=== PATIENT | male | born 1985 | race Caucasian/White ===

== ENCOUNTER 2018-10-14 07:52 | Emergency (ER) | payer BC ==
[2018-10-14 08:08] VITALS: BP 128/80
--- NOTE | 2018-10-14 08:23 | UC ---
Back Pain HPI - HPI Summary HPI Summary: Patient presents to urgent care reporting that for the last 2 years she's had intermittent kidney pain. 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 Patient states the pain gets better the day goes on. Patient has any nausea vomiting. Patient has not taken anything for the pain. Patient has not applied heat. Patient states he saw approximately 2 years ago for the symptoms. Patient had urine and blood work are both normal. Patient not been back since. Patient states he is not currently have a doctor. Patient also reports he has foam in his urine. Patient states she'salso the last couple years. Patient states in the morning his urine is dark gets better the day goes on. Patient denies nausea or vomiting. Patient states currently he has 0 pain. Patient states he slipped at home and at bed last night. Patient does not take anything for the pain. Patient does take Nexium for stomach acid. Patient's medications reviewed this visit. Patient has any penile discharge, lesions, concern for sexual transmitted disease. - History of Current Complaint Chief Complaint: UCGU Stated Complaint: KIDNEY PAIN Time Seen by Provider: 10/14/18 08:21 Hx Obtained From: Patient Onset/Duration: Gradual Onset Timing: Intermittent, Lasting Hours Severity Initially: Moderate Severity Currently: None Pain Intensity: 0 Pain Scale Used: 0-10 Numeric Back Pain: Is Diffuse Character: Sharp, Spasmodic, Stiffness Aggravating Factor(s): Movement, Walking - Allergies/Home Medications Allergies/Adverse Reactions: Allergies Allergy/AdvReac Type Severity Reaction Status Date / Time No Known Allergies Allergy Verified 10/14/18 08:00 Home Medications: Home Medications NK [No Home Medications Reported] 10/14/18 [History Confirmed 10/14/18] PMH/Surg Hx/FS Hx/Imm Hx Previously Healthy: Yes - Surgical History Surgical History: None - Family History Known Family History: Positive: Non-Contributory - Social History Occupation: Employed Full-time Lives: With Family Alcohol Use: Occasionally Substance Use Type: None Smoking Status (MU): Never Smoked Tobacco Review of Systems All Other Systems Reviewed And Are Negative: Yes Constitutional: Positive: Negative Skin: Positive: Negative Eyes: Positive: Negative ENT: Positive: Negative Genitourinary: Positive: Other - foam in urine Motor: Positive: Negative Musculoskeletal: Positive: Other: - back pain Neurological: Positive: Negative Psychological: Positive: Negative Is Patient Immunocompromised?: No Physical Exam - Summary Physical Exam Summary: Vital Signs Reviewed: Yes A+Ox3, no distress Eyes: Conjunctiva Clear, KING. EOM intact and full ENT: Hearing grossly normal TM x 2 clear, mmoist, uvula midline, no exudate, no erythema Neck: Positive: Supple Respiratory: Positive: No respiratory distress, No accessory muscle use + CTA throughout no w/r Cardiovascular: RRR nl s1, s2 no m/r CBT <2 sec abd soft + BS nt/nd no guarding, no distension, no CVA Musculoskeletal Exam: FRANCOIS x 4 without difficulty Strength Intact, ROM Intact No pain c/t/l/s Neurological: Positive: Alert, + sensation throughout Psychological: Positive: Normal Response To Family Skin: Positive: no rash, no ecchymosis Triage Information Reviewed: Yes Vital Signs: Initial Vital Signs Temp 98.2 F 10/14/18 08:01 Pulse 79 10/14/18 08:01 Resp 16 10/14/18 08:01 BP 128/80 10/14/18 08:01 Pulse Ox 100 10/14/18 08:01 Back Pain Course/Dx - Course Course Of Treatment: Pt presents to stating intermittnetly for 2 years has had "kidney pain" pt staes worse in morning, improves during day. Not daily. alternates sides. No radiation. No analgesia taken. Pt also reports foamy urine. No hematuria. No difficulty with urination. Pt without a current PCP. No diagnosis of renal disease. VSS. Pt with normal examination. urine unremarkable. d/w pt at length. Pain may be musculoskeletal and not renal. will check labs. refer to physician referral center - Differential Dx/Diagnosis Provider Diagnosis: Back pain Discharge - Sign-Out/Discharge Documenting (check all that apply): Patient Departure All imaging exams completed and their final reports reviewed: No Studies - Discharge Plan Condition: Stable Disposition: HOME Referrals: No Primary Care Phys,NOPCP [Primary Care Provider] - [facility] [place] [facility] [Outside] Additional Instructions: As discussed today, the doctor is not certain that your pain is related to kidneys. It is possible this is related to muscle pain and spasm related to driving and sleeping conditions. Is recommended to keep a journal of how long it driven, when you have the pain. Also recommended to to slow gentle stretching exercises. Okay to take Tylenol every 6-8 hours as needed. You have blood work and urine collected today. These results will take 1-2 days to come back. A care nut steamer will contact you only if is concerning findings on your blood work. You've also been given the contact information for the physician referral center. Is recommended to contact today to schedule follow- up appointment with a new primary care provider. If you develop uncontrolled pain, vomiting, fever, or any other concerns is recommended on the hospital for further evaluation and treatment. - Billing Disposition and Condition Condition: STABLE Disposition: Home
[2018-10-14 11:17] LABS: ABS Basophils 0 10^3/ul (0-0.2); ABS Eosinophils 0.4 10^3/ul (0-0.6); ABS Monocytes 0.7 10^3/ul (0-0.8); ABS Neutrophils 1.4 10^3/ul (1.5-7.7); ABS Nucleated RBC 0 10^3/ul; Eosinophil % 11.2 %; Hematocrit 45 % (42-52); Hemoglobin 15.5 g/dl (14.0-18.0); Lymphocyte % 29.2 %; Mean Corpuscular HGB Conc 34 g/dl (31-36); Mean Corpuscular Hemoglobin 31 pg (27-31); Mean Corpuscular Volume 90 fL (80-94); Mean Platelet Volume 8.4 fL (7.4-10.4); Nucleated Red Blood Cells % 0; Platelet Count 232 10^3/ul (150-450); Red Blood Count 5.03 10^6/ul (4.00-5.40); Red Cell Distribution Width 12 % (10.5-15); White Blood Count 3.5 10^3/ul (3.5-10.8)
[2018-10-14 11:22] LABS: Albumin 4.8 g/dL (3.2-5.2); Calcium 9.3 mg/dL (8.6-10.3); Magnesium 2.1 mg/dL (1.9-2.7); Potassium 3.5 mmol/L (3.5-5.0); Total Bilirubin 0.3 mg/dL (0.2-1.0)
[2018-10-14 11:28] LABS: Albumin/Globulin Ratio 1.8 (1-3); BUN/Creatinine Ratio 10.4 (8-20); EGFR African American 111.3 (>60); Globulin 2.6 g/dL (2-4); Total Protein 7.4 g/dL (6.4-8.9)
== END 2018-10-14 09:03 | disposition home or self-care (01) ==
LOC: UCEAST 07:52
DX: N23 Unspecified renal colic (principal); M54.9 Dorsalgia, unspecified
CPT/HCPCS: 36415; 80053; 81003; 83735; 85025; 87086; 99202; G0463